=== PATIENT | male | born 1995 | race Caucasian/White ===

== ENCOUNTER 2018-01-02 07:20 | Day surgery (SDC) | payer BC ==
--- NOTE | 2017-12-27 18:49 | HP ---
CC: Dr. Al Gudino; Dr. Nicholas.* ADMITTING HISTORY AND PHYSICAL: DATE OF ADMISSION: 01/02/18 ADMITTING DIAGNOSES: 1. Left hydronephrosis. 2. 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 PLANNED PROCEDURES: Left retrograde pyelogram, left stent insertion, possible balloon dilatation. SURGEON: Dr. Nicholas. ADMITTING HISTORY AND PHYSICAL: Norbert Freitas is a 22-year-old student who has had episodic left flank pain for the last two years. I had originally evaluated him about [address] Gudino had obtained an ultrasound, which had revealed severe left hydronephrosis. My initial impression was that this was related to a congenital left ureteropelvic junction obstruction and further imaging including diuretic nuclear scan and plain x-ray (done to rule out any large calculi) are consistent with the diagnosis of a congenital left ureteropelvic junction obstruction. Interestingly, on the nuclear scan, even though it strongly suggests an obstructed left kidney, his renal function appears fairly symmetric suggesting that there does not appear to be any deterioration in the left renal function due to this ongoing obstruction. I had a detailed discussion with Norbert and his mother regarding the management options and I discussed the option of stent insertion and balloon dilatation and also the more definitive treatment option of referral for a robotic laparoscopic pyeloplasty. He would like to try the less invasive option first and is now being brought in for left retrograde stent insertion and possible balloon dilatation. PAST MEDICAL HISTORY: Unremarkable. PAST SURGICAL HISTORY: Negative. MEDICATIONS ON ADMISSION: None. ALLERGIES: IBUPROFEN (eye swelling). SOCIAL HISTORY: Smoking history, he is a nonsmoker. REVIEW OF SYSTEMS: He is otherwise in excellent health. There is no history of diabetes mellitus or asthma or any other major systemic illness. PHYSICAL EXAMINATION GENERAL: Reveals a pleasant, healthy-appearing young gentleman. VITAL SIGNS: Blood pressure is 130/80, pulse 78 per minute and regular, temperature 97.9, oxygen saturation 98% on room air. LUNGS: Clear bilaterally. CARDIOVASCULAR: Regular rate and rhythm. S1, S2. ABDOMEN: Soft with mild left flank tenderness. IMPRESSION: A 22-year-old gentleman with severe left hydronephrosis likely due to congenital left ureteropelvic junction obstruction PLAN: Left retrograde, left stent insertion, possible balloon dilatation. [id number]/[facility] #: [id number] [facility]
[~2018-01-02 07:20] MED LIST: Buffered Lidocaine 0.9% SYRIN* 5 ML/SYR SYRINGE INTRADERM ONE; Famotidine IV* 10 MG/ML 2 ML (20 mg) IV ONE; Iohexol 180 (CONTRAST) 10 ML SDV IV ONE
[2018-01-02] MEDS ORDERED: cefTRIAXone(*) 2 GM ADDV.VIAL IVPB ONE (07:35)
[2018-01-02] MEDS ORDERED: Famotidine IV* 10 MG/ML 2 ML (20 mg) ONE (07:35)
[2018-01-02] MEDS ORDERED: Buffered Lidocaine 0.9% SYRIN* 5 ML/SYR SYRINGE ONE (07:36)
[2018-01-02] MEDS ORDERED: Lidocaine 2% PF * 5 ML VIAL ONE (07:56)
[2018-01-02] MEDS ORDERED: Dexamethasone IV* 4 MG/ML 1 ML (4 MG) ONE (07:56)
[2018-01-02] MEDS ORDERED: Propofol* 10 MG/ML 20 ML BTL IV PUSH ONE (07:56)
[2018-01-02] MEDS ORDERED: Ondansetron INJ* 2 MG/ML VIAL ONE (07:56)
[2018-01-02] MEDS ORDERED: Ketorolac INJ* 30 MG/ML 1 ML VIAL ONE (07:56)
[2018-01-02] MEDS ORDERED: fentaNYL* 50 MCG/ML 2 ML VIAL (100 MCG VIAL) ONE (07:57)
[2018-01-02] MEDS ORDERED: Midazolam* 1 MG/ML 5 ML VIAL (5 MG) ONE (07:57)
[2018-01-02] MEDS ORDERED: Iohexol 180 (CONTRAST) 10 ML SDV IV ONE (10:28)
[2018-01-02] MEDS ORDERED: oxyCODONE/Acetamin 5/325 MG* TAB PO PRN (10:38)
[2018-01-02] MEDS ORDERED: fentaNYL* 50 MCG/ML 2 ML VIAL (100 MCG VIAL) IV PRN (10:38)
[2018-01-02] MEDS ORDERED: Ondansetron INJ* 2 MG/ML VIAL IV PRN (10:38)
[2018-01-02] MEDS ORDERED: Naloxone* 0.4 MG/ML 1 ML VIAL IV PRN (10:38)
[2018-01-02] MEDS ORDERED: Gentamicin ADULT (*) 160 MG in NS 0.9% 100 ML* 100 ML IVPB ONE (11:30)
[2018-01-02 11:41] VITALS: BP 145/96
--- NOTE | 2018-01-02 11:57 | RAD ---
INDICATION: Left-sided retrograde balloon dilatation and stent insertion COMPARISONS: December 27, 2017 TECHNIQUE: Fluoroscopy was provided for a retrograde pyelogram and stent placement. Total fluoroscopy time is: 17 seconds FINDINGS: Spot images demonstrate contrast within the left renal collecting system which is dilated. A ureteral stent is noted. IMPRESSION: FLUOROSCOPY WAS PROVIDED FOR A RETROGRADE PYELOGRAM AND STENT PLACEMENT CPT II Codes: G9500
--- NOTE | 2018-01-03 01:48 | OP ---
CC: Dr. Al Gudino * DATE OF OPERATION: 01/02/18 - [facility] DATE OF : [birth year] SURGEON: Justin Nicholas MD ANESTHESIOLOGIST: Dr. Hubbard ANESTHESIA: General. PRE-OP DIAGNOSES: 1. Left hydronephrosis. 2. Left uteropelvic junction obstruction. POST-OP DIAGNOSES: 1. Left hydronephrosis. 2. Left uteropelvic junction obstruction. OPERATIVE PROCEDURE: Cystoscopy, left retrograde pyelogram, left ureteral balloon dilatation, and left stent insertion. COMPLICATIONS: None. STENT USED: 7 Romanian stent, left ureter. INDICATIONS: Norbert Freitas is a 22-year-old gentleman who was evaluated for history of episodic left flank pain. He was noted to have severe left hydronephrosis and evaluation including a diuretic nuclear scan was consistent with an obstructed left collecting system. My diagnosis was likely a congenital left ureteropelvic junction obstruction and he was given options of proceeding straight with the consideration of left pyeloplasty or an attempted balloon dilatation and stent insertion. OPERATIVE FINDINGS: 1. Severe left hydronephrosis. 2. Area of narrowing seen at level of uteropelvic junction, consistent with congenital UPJ obstruction. POSTOPERATIVE CONDITION: Stable. DESCRIPTION OF PROCEDURE: After induction of general anesthesia, the patient was placed in dorsal lithotomy position. Sequential compression devices were in place and functioning. Initial cystoscopy revealed a normal-appearing urethra and bladder. Single orifices were noted on the right and left side in the trigone and the bladder was unremarkable. A guidewire was introduced into the left ureter. Retrograde pyelogram revealed severe left hydronephrosis with a fairly normal ureter up until the level of the ureteropelvic junction where there appeared to be narrowing noted at the point where the ureter joined the renal pelvis. The remainder of the retrograde was unremarkable and that there were no filling defects noted in the ureter. The ureteropelvic junction was carefully dilated initially with a 4- Romanian open-ended catheters subsequently with an 8-Romanian open-ended catheter and then with a balloon dilator under fluoroscopic monitoring. Once this was done, the balloon was removed and a 7-Romanian stent was introduced and positioned under fluoroscopy with good proximal and distal positioning obtained. The bladder was emptied. The patient tolerated the procedure satisfactorily and was transferred back to the recovery area in stable condition. [id number]/[facility] #: [id number] [facility]
== END 2018-01-02 11:54 | disposition home or self-care (01) ==
LOC: OR 07:20
PROVIDERS: ATTEND Urology
DX: N13.1 Hydronephrosis with ureteral stricture, not elsewhere classified (principal); R11.2 Nausea with vomiting, unspecified
CPT/HCPCS: 74420; C1876; J0696; J1100; J1580; J1885; J2250; J2405; J2704; J3010